=== PATIENT | female | born 1995 | race Caucasian/White ===

== ENCOUNTER 2021-05-08 18:51 | Emergency (ER) | payer MEDICAID ==
[~2021-05-08] VITALS: Ht 165.1 cm; Wt 81.8 kg
[2021-05-08 23:16] VITALS: BP 128/82
[2021-05-08] MEDS ORDERED: AMOX-117 PO (23:30)
[2021-05-08] MEDS ORDERED: amox tr/potassium clavulanate 875/125mg TAB PO ONE (23:30)
== END 2021-05-09 00:29 | disposition home or self-care (01) ==
LOC: ER 18:52
DX: J34.89 Other specified disorders of nose and nasal sinuses (principal); J45.909 Unspecified asthma, uncomplicated; R50.9 Fever, unspecified; Z88.8 Allergy status to other drugs, medicaments and biological substances
CPT/HCPCS: 99283